=== PATIENT | female | born 1990 | race Two or more races ===

== ENCOUNTER 2021-06-07 18:21 | Emergency (ER) | payer MEDICARE, MEDICAID ==
[~2021-06-07] VITALS: Ht 170.2 cm; Wt 95.0 kg
[2021-06-07 18:24] VITALS: BP 112/86
== END 2021-06-07 19:26 | disposition left against medical advice (07) ==
LOC: ER 18:21
DX: Z53.21 Procedure and treatment not carried out due to patient leaving prior to being seen by health care provider (principal)